=== PATIENT | male | born 1980 | race Two or more races ===

== ENCOUNTER 2022-06-07 11:08 | Emergency (ER) | payer OTHER, SELFPAY ==
--- NOTE | ~2022-06-07 | XR_ITS ---
EXAMINATION: RIGHT SHOULDER AND RIGHT HUMERUS CLINICAL INFORMATION: Injury. Pain COMPARISON: None TECHNIQUE: 3 views right shoulder and 2 views right humerus FINDINGS: Right humerus: There is no visible fracture or bony abnormality. The soft tissues are normal. Right shoulder: The glenohumeral joint and AC joints space is maintained normal. There is no visible acute fracture, dislocation or subluxation. No soft tissue abnormality. XR/XR humerus RT IMPRESSION: Unremarkable right humerus and right shoulder joint exam.
--- NOTE | ~2022-06-07 | XR_ITS ---
EXAMINATION: RIGHT SHOULDER AND RIGHT HUMERUS CLINICAL INFORMATION: Injury. Pain COMPARISON: None TECHNIQUE: 3 views right shoulder and 2 views right humerus FINDINGS: Right humerus: There is no visible fracture or bony abnormality. The soft tissues are normal. Right shoulder: The glenohumeral joint and AC joints space is maintained normal. There is no visible acute fracture, dislocation or subluxation. No soft tissue abnormality. XR/XR shoulder RT min 2V IMPRESSION: Unremarkable right humerus and right shoulder joint exam.
[2022-06-07 11:17] VITALS: BP 121/85; PULSE 76; RESP 18; TEMP 36.7; O2SAT 99; BMI 22.0
--- NOTE | 2022-06-07 11:56 | ED_ITS ---
HPI - Extremity Problem General Chief complaint: Extremity Injury, Upper Stated complaint: arm INJ/work INJ Time Seen by Provider: 06/07/22 11:34 Source: patient Mode of arrival: ambulatory Limitations: no limitations History of Present Illness HPI Narrative: Patient presents to the emergency department for evaluation of right shoulder pain. He states that today he was at work and he went to lift a piece of heavy machinery, stating that he did not realize it was still tethered to another part of the machine. He felt a pull across the top of his right shoulder and into his neck and heard a clicking sound. Currently experiencing pain to the right shoulder that radiates down into the elbow. Denies any numbness or tingling. Denies any prior injury to this shoulder or home. Denies any neck pain. Denies any weakness to the arm or hand. Related Data Allergies Allergy/AdvReac Type Severity Reaction Status Date / Time No Known Allergies Allergy Verified 06/07/22 11:16 Review of Systems Review of Systems: Musculoskeletal: Positive arm pain as noted in the HPI Yes all other systems are reviewed and are negative [facility] Past Medical History Attestation statement: The following information was validated with the patient. Source: old records reviewed Social History Social History Advance Directives: No Advance Directives Information Provided: No Physical Exam Vital Signs: Vital Signs: Last Vital Signs Temp 98.0 F 06/07/22 11:17 Pulse 76 06/07/22 11:17 Resp 18 06/07/22 11:17 BP 121/85 06/07/22 11:17 Pulse Ox 99 06/07/22 11:17 O2 Del Method 06/07/22 11:17 BMI result Body Mass Index 22.0 Vital signs have been reviewed as normal and appeared to be correct. Blood pressure normal.? Heart rate normal.? Respiration rate normal. Temperature normal.? Oxygen saturation normal. Appearance: Alert.?Oriented to person, place and time. No acute distress.?Normal affect. Neck: Normal inspection.? Neck supple.??No midline cervical spine tenderness, step-offs, deformities CVS: Heart sounds normal. Normal heart rate and rhythm.? Pulses normal.?? Respiratory: No respiratory distress.? Lung sounds clear to auscultation bilaterally?? Abdomen: Soft and non-tender. Normoactive bowel sounds. ? Skin: Skin warm and dry.? Normal skin color.? Extremities: No lower extremity edema.? Limited abduction of right shoulder to 90 degrees, able to externally rotate the shoulder. Full AROM to neck. No point tenderness. No obvious deformities or palpable bony abnormalities. Neuro: Moves all extremities spontaneously. Sensation intact bilaterally. CN II- XII intact. No focal neuro deficits. Ambulates with normal steady gait. Course Course Course Narrative: Patient is a 41-year-old male with no significant past medical history presenting to emergency department for evaluation of right shoulder/upper arm pain after an injury while lifting something at work earlier today. 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 XR of the right shoulder and humerus reveal _. Discussed these findings with patient. At this time suspect pain to be musculoskeletal in nature, likely a muscle strain. Reviewed treatment with rest, ice, elevation of the extremity, avoiding heavy lifting. Patient agreeable to using naproxen twice daily for pain. Will take the next 2 days off from work and follow-up with [facility]. Discussed worrisome signs and symptoms to return back to the emergency department for. All questions were answered. Patient discharged home in stable condition. MDM - Extremity (Nontraumatic) Medical Records Attestation: I reviewed the patient's medical records. Imaging Data XR shoulder/humerous: Radiologist's impression: FINDINGS: Right humerus: There is no visible fracture or bony abnormality. The soft tissues are normal. Right shoulder: The glenohumeral joint and AC joints space is maintained normal. There is no visible acute fracture, dislocation or subluxation. No soft tissue abnormality.? XR/XR humerus RT IMPRESSION: Unremarkable right humerus and right shoulder joint exam.? Discharge Plan Discharge Clinical Impression: Muscle strain of right shoulder Patient Disposition: Home, Self-Care Instructions: Muscle Strain (ED) Additional Instructions: Be sure to rest, apply ice multiple times daily for 10-15 minutes at a time, elevate the right arm, use naproxen for pain. Do not use additional [id number]-[id number] medications such as Aleve, ibuprofen/Motrin, or aspirin while taking this medication. Return to the emergency department any new or worsening symptoms or concerns. Take the next 2 days off from work, and then follow up with [facility] prior to your return. Referrals: [facility] [Provider Group] Stand Alone Forms: Work/School Release Interventions: ED Discharge Assessment Last Done: 06/07/22 13:09 Discharge Date/Time: 06/07/22 13:10
== END 2022-06-07 13:10 | disposition home or self-care (01) ==
PROVIDERS: Emergency Provider Emergency Medicine
DX: S46.911A Strain of unspecified muscle, fascia and tendon at shoulder and upper arm level, right arm, initial encounter (principal); M25.511 Pain in right shoulder; X50.0XXA Overexertion from strenuous movement or load, initial encounter; X50.3XXA Overexertion from repetitive movements, initial encounter; Y93.9 Activity, unspecified; Y92.9 Unspecified place or not applicable; Y99.0 Civilian activity done for income or pay
CPT/HCPCS: 73030; 73060; 99283

== ENCOUNTER → 2022-06-10 09:54 | Outpatient (BNVA) | payer OTHER, SELFPAY | PROVIDERS: Visit Provider Physician Assistant Medical | DX: S46.911A Strain of unspecified muscle, fascia and tendon at shoulder and upper arm level, right arm, initial encounter (principal); X50.0XXA Overexertion from strenuous movement or load, initial encounter | CPT/HCPCS: 99203 ==

== ENCOUNTER 2022-06-18 07:20 | Outpatient (REF) | payer OTHER, SELFPAY ==
--- NOTE | ~2022-06-18 | MR_ITS ---
EXAMINATION: MR SHOULDER WITHOUT CONTRAST, RIGHT CLINICAL INFORMATION: Lifting injury. Decreased range of motion. Pain. Rule out tear. COMPARISON: 06/07/2022 TECHNIQUE: MRI of the shoulder without contrast was performed on a high-field scanner. FINDINGS: ROTATOR CUFF: An insertional tear of the junctional fibers of the supraspinatus and infraspinatus tendons measures 1 cm AP and three quarters of the tendon cross-section. The superficial fibers are retracted medially by 3 mm. Mild tendinosis. Supraspinatus and infraspinatus tendons are otherwise intact. Subscapularis tendon is normal. No muscle atrophy or fatty infiltration. BICEPS: Normal. CORACOACROMIAL ARCH: The undersurface of the acromion is curved with no subacromial spur. The acromioclavicular joint is normal. Trace volume of fluid in subacromial-subdeltoid bursa. LABRUM/CAPSULE: There is a very subtle linear focus of increased T2 signal in the glenoid labrum posterosuperiorly at the 10 o'clock position as seen on image 12/22 of series 6. Given the presence of an adjacent 4 mm paralabral cyst, this most likely corresponds to a very small focal type II SLAP tear. A sublabral foramen is evident anterosuperiorly. No additional labral tears. Joint capsule is intact. GLENOHUMERAL JOINT/MARROW: No fracture or malalignment. Marrow signal is normal. Articular cartilage appears well preserved. No joint effusion. MR/MR shoulder RT wo con IMPRESSION: 1. A 1 cm (AP) partial-thickness, bursal-sided tear of the junctional fibers of the supraspinatus and infraspinatus tendons. No muscle atrophy. 2. A small, focal tear is suspected at the posterosuperior glenoid labrum with an associated 4 mm paralabral cyst.
== END 2022-06-18 07:21 | disposition home or self-care (01) ==
LOC: HO.MRI 07:20
PROVIDERS: Visit Provider Internal Medicine
DX: M25.511 Pain in right shoulder (principal)
CPT/HCPCS: 73221

== ENCOUNTER → 2022-07-01 12:46 | Outpatient (BNVA) | payer OTHER, SELFPAY | PROVIDERS: Visit Provider Physician Assistant Medical | DX: S46.911A Strain of unspecified muscle, fascia and tendon at shoulder and upper arm level, right arm, initial encounter (principal); X50.0XXA Overexertion from strenuous movement or load, initial encounter | CPT/HCPCS: 99213 ==

== ENCOUNTER → 2022-07-15 14:07 | Outpatient (BNVA) | payer OTHER, SELFPAY | PROVIDERS: Visit Provider Physician Assistant Medical | DX: S46.911D Strain of unspecified muscle, fascia and tendon at shoulder and upper arm level, right arm, subsequent encounter (principal); X50.0XXD Overexertion from strenuous movement or load, subsequent encounter | CPT/HCPCS: 99213 ==

== ENCOUNTER → 2022-07-22 14:35 | Outpatient (BNVA) | payer OTHER, SELFPAY | PROVIDERS: Visit Provider Physician Assistant Medical | DX: S46.911D Strain of unspecified muscle, fascia and tendon at shoulder and upper arm level, right arm, subsequent encounter (principal); X50.0XXD Overexertion from strenuous movement or load, subsequent encounter | CPT/HCPCS: 99213 ==

== ENCOUNTER 2022-09-17 14:00 | Outpatient (RCR) | payer OTHER, SELFPAY ==
--- NOTE | 2022-06-20 13:51 | MHC.PT.EP ---
[facility] [place] Office [place] Office [place] Office [address] Mark Carr [address] [phone] F: [phone] F: [phone] F: [phone] F: [phone] Physical Therapy Plan of Care Date of Evaluation: Date of Surgery: N/A Diagnosis: right trapezius strain Assessment: Pt is a pleasant 41yo M who presents to PT after injuring his R shoulder at work on 06/07/22. Xray negative for fracture, MRI report reveals partial thickness tear of supraspinatus and infraspinatus. Pt presents to PT with current impairments in pain, decreased R shoulder ROM, decreased R shoulder strength, and soft tissue restrictions. He is limited functionally by lifting, reaching, overhead ADLs, pushing, pulling, and sleeping. He is a good candidate for skilled PT in order to address current impairments to facilitate return to PLOF. He will be seen 2x/week for 5 weeks and will be reassessed at that time. Frequency and Duration: The patient will be seen 2x/week for 5 weeks Short Term Goals: Pt will be I with HEP to promote self management of symptoms Pt will improve R shoulder flexion by at least 10 degrees Fourchette Sewer Goals: Pt will perform overhead ADLs with minimal to no compensation Pt will demonstrate full ROM and strength throughout R shoulder to assist functional tasks Pt will demonstrate ability to lift at least 5# object to overhead shelf to assist with ADLs Treatment Plan: Modalities to reduce pain, spasms and effusion. Manual therapy to restore motion and function. Therapeutic exercise to improve strength and flexibility. Neuromuscular re-education for posture and balance. Therapeutic activities to return to functional activities of daily living. Electronically signed by: Ameena Castellanos, PT, DPT Please sign and return to therapist. Thank you for your referral.
--- NOTE | 2022-09-19 17:59 | MHC.PT.DC ---
[facility] [place] Office [place] Office [place] Office [address] Mark Carr [address] [phone] F: [phone] F: [phone] F: [phone] F: [phone] Physical Therapy Discharge Report Diagnosis: right trapezius strain Date of Surgery: N/A Date of Evaluation: 06/20/22 Date of Discharge: 09/19/22 Treatments to Date: 19 Cancellations to Date: No Shows to Date: 1 Discharge Status: Achieved Goals Improved Function Independent with HEP Discharge Summary: Pt was seen for skilled PT from 06/20/22-09/17/22. His last attended appointment was 09/17/22. Pt has made excellent progress since SOC. He has improved ROM and strength to WNL all planes of R shoulder. He has had minimal to no pain throughout R shoulder consistently. He has met his STGs and his LTGs. He is I with HEP and is extremely compliant with HEP. Pt is being D/C from skilled PT at this time. Electronically signed by: Ameena Castellanos, PT, DPT Please sign and return to therapist. Thank you for your referral.
== END 2022-09-19 17:58 | disposition home or self-care (01) ==
LOC: HO.PT 14:00
PROVIDERS: Visit Provider Physician Assistant Medical
DX: S46.011D Strain of muscle(s) and tendon(s) of the rotator cuff of right shoulder, subsequent encounter (principal)
CPT/HCPCS: 97110; 97140; 97162; 97530